=== PATIENT | female | born 1985 | race American Indian/Alaskan Native ===

== ENCOUNTER 2017-01-29 21:53 | Outpatient (CLI) | payer MEDICAID ==
[2017-01-29] MEDS ORDERED: LACTATED RINGERS 1,000 ML IV ONE (22:12)
[2017-01-29 22:16] VITALS: BP 112/76
[2017-01-29 22:53] LABS: Bilirubin,Urine NEG (Negative); Blood,Urine NEG (Negative); Ketones,Urine 20 mg/dL (Negative); Leukocyte Esterase,Urine NEG (Negative); Mucus,Urine 3+ /HPF; Nitrite,Urine NEG (Negative); Urobilinogen,Urine < 2.0 mg/dL (<2.0); WBC,Urine < 1.0 /HPF (0.0-6.0)
== END 2017-01-29 23:30 | disposition home or self-care (01) ==
LOC: TRG 21:53
PROVIDERS: ATTEND Obstetrics & Gynecology
DX: O47.03 False labor before 37 completed weeks of gestation, third trimester (principal); Z3A.31 31 weeks gestation of pregnancy
CPT/HCPCS: 59025; 81001; 96360; J7120

== ENCOUNTER 2017-03-07 19:12 | Outpatient (CLI) | payer MEDICAID ==
[2017-03-07 20:05] VITALS: BP 122/68
[2017-03-07] MEDS ORDERED: TYLENOL ONE (22:03)
[2017-03-07] MEDS ORDERED: TYLENOL PO ONE (22:06)
== END 2017-03-07 22:30 | disposition home or self-care (01) ==
LOC: TRG 19:12 → LD 19:59 → TRG 22:30
PROVIDERS: ATTEND Obstetrics & Gynecology
DX: O47.03 False labor before 37 completed weeks of gestation, third trimester (principal); Z3A.36 36 weeks gestation of pregnancy

== ENCOUNTER 2017-03-10 14:41 | Outpatient (CLI) | payer MEDICAID ==
[2017-03-10 14:57] VITALS: BP 113/58
== END 2017-03-10 16:05 | disposition home or self-care (01) ==
LOC: TRG 14:41
PROVIDERS: ATTEND Obstetrics & Gynecology
DX: O47.1 False labor at or after 37 completed weeks of gestation (principal); Z3A.37 37 weeks gestation of pregnancy
CPT/HCPCS: 59025

== ENCOUNTER 2017-03-20 20:30 | Inpatient (IN) | payer MEDICAID ==
[2017-03-20] MEDS ORDERED: LACTATED RINGERS 1,000 ML ONE (21:48)
[2017-03-20] MEDS ORDERED: STADOL IV PRN (21:57)
[2017-03-20] MEDS ORDERED: BRETHINE SUB-Q PRN (21:57)
[2017-03-20] MEDS ORDERED: XYLOCAINE 2% INFILTRATI ONE (21:57)
[2017-03-20] MEDS ORDERED: MINERAL OIL PO PRN (21:57)
[2017-03-20] MEDS ORDERED: ePHEDrine SULFATE IV PRN (21:57)
[2017-03-20] MEDS ORDERED: SUBLIMAZE IV PRN (21:57)
[2017-03-20] MEDS ORDERED: POLYCILLIN/NS 2 GM/100 ML 2 GM/100 ML BAG IV ONE (21:57)
[2017-03-20] MEDS ORDERED: BRETHINE IVP PRN (21:57)
[2017-03-20] MEDS ORDERED: PITOCin/NS 30 UNIT/500ML 30 UNITS/500 ML BAG IV SCH (22:00)
[2017-03-20] MEDS ORDERED: PITOCin/NS 20 UNIT/1000ML DRIP 20 UNITS/1,000 ML BAG IV SCH (22:00)
[2017-03-20 22:10] LABS: Hemoglobin 10.6 gm/dl (10.1-14.3); Mean Corpuscular HGB Conc 33 % (30-34); Mean Corpuscular Hemoglobin 28 pg (28-32); Mean Corpuscular Volume 86 fl (79-97); Platelet Count 224 K/mm3 (140-440); Red Blood Count 3.72 M/mm3 (3.65-5.03); Red Cell Distribution Width 13.1 % (13.2-15.2); White Blood Count 6.9 K/mm3 (4.5-11.0)
[2017-03-20] MEDS ORDERED: CERVIDIL VG ONE (22:15)
[2017-03-21] MEDS: POLYCILLIN/NS 1 GM/50 ML 1 GM/50 ML BAG IV SCH ×4 (02:57→18:39)
--- NOTE | 2017-03-21 04:38 | History and Physical Report ---
History of Present Illness Date of examination: 03/21/17 Date of admission: 03/20/17 20:30 History of present illness: 31 yo LMP EDC 04/01/17 @ 38.3 weeks gestation, presented to triage for induction of labor secondary to IUGR 1 - 2%. Entry into care at 14 weeks gestation. Abnormal quad, increased risk for T-21. Negative NIPT screen. [facility] referral done for same. Discovered IUGR, continued to follow weekly. Negative TORCh panel. GBS positive Past History Past Surgical History: other (Abdominoplasty 2012) Family/Genetic History: none Social history: no significant social history - Obstetrical History Expected Date of Delivery: 04/01/17 Actual Gestation: 38 Week(s) 3 Day(s) : 4 Para: 2 Hx # Term Pregnancies: 2 Number of Living Children: 2 Medications and Allergies Allergies Allergy/AdvReac Type Severity Reaction Status Date / Time No Known Allergies Allergy Verified 06/26/15 22:47 Home Medications Medication Instructions Recorded Confirmed Last Taken Type ALBUTEROL Inhaler [ProAir HFA 2 puff IH QID PRN #1 inhalation 06/26/15 03/10/17 Unknown Rx Inhaler] Active Meds: Active Medications Butorphanol Tartrate (Stadol) 2 mg IV Q2H PRN PRN Reason: Pain , Severe (7-10) Ephedrine Sulfate (Ephedrine Sulfate) 10 mg IV Q2M PRN PRN Reason: Hypotension Fentanyl (Sublimaze) 100 mcg IV Q2H PRN PRN Reason: Labor Pain Ampicillin Sodium (Polycillin/Ns 1 Gm/50 Ml) 1 gm in 50 mls @ 100 mls/hr IV Q4HR YAW PRN Reason: Protocol Last Admin: 03/21/17 02:57 Dose: 100 mls/hr Lactated Ringer's (Lactated Ringers) 1,000 mls @ 125 mls/hr IV DIRECT YAW Oxytocin/Sodium Chloride (Pitocin/Ns 20 Unit/1000ml Drip) 20 units in 1,000 mls @ 125 mls/hr IV DIRECT YAW Oxytocin/Sodium Chloride (Pitocin/Ns 30 Unit/500ml) 30 units in 500 mls @ 1 mls /hr IV TITR YAW; 1 MILLIUNITS/MIN PRN Reason: Protocol Mineral Oil (Mineral Oil) 30 ml PO QHS PRN PRN Reason: Constipation Ondansetron HCl (Zofran) 8 mg IV Q8H PRN PRN Reason: Nausea And Vomiting Terbutaline Sulfate (Brethine) 0.25 mg SUB-Q ONCE PRN PRN Reason: Hyperstimulation/Hypertonicity Terbutaline Sulfate (Brethine) 0.25 mg IVP ONCE PRN PRN Reason: Hyperstimulation/Hypertonicity Review of Systems All systems: negative - Vital Signs Vital signs: Vital Signs Pulse BP Pulse Ox 97 H 123/70 98 03/20/17 20:57 03/20/17 20:57 03/20/17 20:57 Temp Pulse Resp BP Pulse Ox 98.2 F 89 18 123/81 98 03/21/17 04:22 03/21/17 04:37 03/21/17 04:22 03/21/17 04:22 03/21/17 04:37 - Physical Exam Lungs: Positive: Normal air movement Abdomen: Positive: normal appearance, soft Genitourinary (Female): Positive: normal external genitalia, normal perenium Vagina: Positive: normal moisture Anus/Rectum: Positive: normal perianal skin - Obstetrical FHR: category 1 Uterine Contraction Monitor Mode: External Cervical Dilatation: 1 Cervical Effacement Percentage: 50 station: -3 Uterine Contraction Pattern: Irregular Uterine Tone Measurement Phase: Resting Uterine Contraction Intensity: Mild Results Result Diagrams: 03/20/17 21:30 Abnormal lab results 03/20/17 Range/Units 21:30 RDW 13.1 L (13.2-15.2) % All other labs normal. Assessment and Plan A: IUP at 38.1 weeks gestation IUGR Induction of Labor Unfavorable Cervix GBS Positive P: Cervidil Induction
[2017-03-21] MEDS: LACTATED RINGERS 1,000 ML IV SCH ×2 (06:13→18:13)
[2017-03-21] MEDS: ZOFRAN IV PRN ×2 (08:33→19:52)
[2017-03-21] MEDS ORDERED: CYTOTEC VG PRN (14:00)
[2017-03-21] MEDS: PITOCin/NS 30 UNIT/500ML 30 UNITS/500 ML BAG IV SCH ×5 (15:19→18:03)
[2017-03-21] MEDS ORDERED: TYLENOL PO PRN (16:09)
--- NOTE | 2017-03-21 22:48 | Event Note ---
Date: 03/21/17 Patient advanced to 2cm. Amniotomy performed with clear fluid. IUPC placed. Unable to adequately place FSE. Evidence of hyperstimulation. Pitocin held. Repetitive decels observed during hyperstim. O2 placed. Decels resolved with minimal variability. Will monitor closely and hold pitocin until tracing improves.
[2017-03-21] MEDS ORDERED: NARCAN 2 MG/2 ML IV PRN (23:45)
[2017-03-21] MEDS ORDERED: fentaNYL-BUPIV 2 MCG/ML-0.125% 200 MCG/100 ML BAG EPIDURAL SCH (23:45)
[2017-03-21] MEDS ORDERED: ePHEDrine SULFATE IV PRN (23:45)
--- NOTE | 2017-03-21 23:46 | Anesthesia Consultation ---
Anesthesia Consult and Med Hx Date of service: 03/21/17 - Airway Anesthetic Teeth Evaluation: Good ROM Head & Neck: Adequate Mental/Hyoid Distance: Adequate Mallampati Class: Class II Intubation Access Assessment: Probably Good - Pulmonary Exam CTA: Yes - Cardiac Exam Cardiac Exam: RRR - Pre-Operative Health Status ASA Pre-Surgery Classification: ASA2 Proposed Anesthetic Plan: Epidural - Pulmonary Hx Asthma: No COPD: No Hx Pneumonia: No - Cardiovascular System Hx Hypertension: No - Central Nervous System Hx Seizures: No Hx Psychiatric Problems: No - Endocrine Hx Renal Disease: No Hx End Stage Renal Disease: No Hx Hypothyroidism: No Hx Hyperthyroidism: No - Hematic Hx Anemia: No Hx Sickle Cell Disease: No - Other Systems Hx Alcohol Use: No
[2017-03-22] MEDS: LACTATED RINGERS 1,000 ML IV SCH (00:50)
[2017-03-22] MEDS: POLYCILLIN/NS 1 GM/50 ML 1 GM/50 ML BAG IV SCH (02:45)
--- NOTE | 2017-03-22 03:28 | Procedure Note ---
OB Delivery Note - Delivery Date of Delivery: 03/22/17 Surgeon: JERRY MILAN Estimated blood loss: 100cc - Vaginal Delivery presentation: vertex Delivery position: OA Intrapartum events: other(please specify) (IUGR) Delivery induction: cervidil Delivery augmentation: rupture of membranes, pitocin Delivery monitor: external FHT, internal uterine Route of delivery: Delivery placenta: spontaneous Delivery cord: nuchal cord Episiotomy: none Delivery laceration: none Anesthesia: epidural Delivery comments: Patient progressed to C/C/+2 and pushed to deliver a liveborn female with apgars of 8/9 and weight of 5lbs 14oz. After delivery of the head, a nuchal cord x 1 was manually reduced. The shoulders delivered easily. The infant was bulb suctioned and transferred to the warmer after The cord was clamped and cut. The placenta delivered spontaneously intact with a 3VC. No lacerations. EBL 100ml - A at 1 minute: 8 at 5 minutes: 9 Infant Gender: Female (weight 5lbs 14oz)
[2017-03-22] MEDS ORDERED: TYLENOL PO PRN (03:29)
[2017-03-22] MEDS ORDERED: MILK OF MAGNESIA PO PRN (03:29)
[2017-03-22] MEDS ORDERED: ZOFRAN IV PRN (03:29)
[2017-03-22] MEDS ORDERED: PHENERGAN PO PRN (03:29)
[2017-03-22] MEDS ORDERED: PHENERGAN PR PRN (03:29)
[2017-03-22] MEDS ORDERED: DULCOLAX PR PRN (03:29)
[2017-03-22] MEDS ORDERED: LANSINOH TP PRN (03:29)
[2017-03-22] MEDS ORDERED: BENADRYL PO PRN (03:29)
[2017-03-22] MEDS ORDERED: TUCKS PAD TP PRN (03:29)
[2017-03-22] MEDS ORDERED: SODIUM CHLORIDE FLUSH SYRINGE 10 ML IV NR (04:00)
[2017-03-22] MEDS: NORCO 5/325 PO PRN ×3 (07:28→20:43)
[2017-03-22] MEDS: MOTRIN PO SCH ×3 (07:29→20:43)
[2017-03-22 16:27] LABS: Hematocrit 29.7 % (30.3-42.9); Hemoglobin 9.9 gm/dl (10.1-14.3)
[2017-03-23] MEDS: NORCO 5/325 PO PRN ×2 (04:43→11:40)
[2017-03-23] MEDS: MOTRIN PO SCH ×3 (04:43→11:39)
[2017-03-23] MEDS ORDERED: BOOSTRIX IM ONE (06:05)
--- NOTE | 2017-03-23 09:22 | Progress Note ---
Assessment and Plan O: VSS AF A: Stable PP Day 1 P: discharge home Subjective - Subjective Date of service: 03/23/17 Interval history: 31 yo LMP EDC 04/01/17 @ 38.3 weeks gestation, presented to triage for induction of labor secondary to IUGR 1 - 2%. Entry into care at 14 weeks gestation. Abnormal quad, increased risk for T-21. Negative NIPT screen. [facility] referral done for same. Discovered IUGR, continued to follow weekly. Negative TORCh panel. GBS positive Patient reports: appetite normal, voiding normally, pain well controlled, flatus , ambulating normally [place]: doing well Objective - Vital Signs Latest vital signs: Vital Signs Temp Pulse Resp BP BP Pulse Ox 03/23/17 00:30 98.6 F 66 16 120/71 03/22/17 16:26 98.1 F 74 22 109/57 95 03/22/17 12:14 97.7 F 76 20 124/80 98 Intake and Output 03/22/17 03/23/17 03/23/17 22:59 06:59 14:59 Intake Total 360 600 Balance 360 600 Intake: Oral 360 Intake, Free Water 600 Other: Total, Intake Amount 360 # Voids Void 1 - Exam Breasts: Present: deferred Lungs: Present: Normal air movement Abdomen: Present: normal appearance, soft. Absent: distention, tenderness Vulva: both: normal Uterus: Present: normal, firm, fundal height below umbilicus. Absent: bogginess , tenderness Extremities: Present: normal - Labs Labs: Abnormal lab results 03/22/17 Range/Units 16:10 Hgb 9.9 L (10.1-14.3) gm/dl Hct 29.7 L (30.3-42.9) %
--- NOTE | 2017-03-23 09:24 | Discharge Summary ---
Providers - Providers Date of Admission: 03/20/17 20:30 Date of discharge: 03/23/17 Attending physician: CHERRY MARTIN Primary care physician: CHERRY MARTIN Hospitalization Reason for admission: active labor, IUP at term Delivery: Episiotomy: none Laceration: none Other procedures: none complications: none Discharge diagnosis: IUP at term delivered baby: female Condition at discharge: Good Disposition: DC-01 TO HOME OR SELFCARE Plan - Discharge Medications Prescriptions: Ibuprofen [Motrin 600 MG tab] 600 mg PO Q6H PRN #30 tablet PRN Reason: Pain - Provider Discharge Summary Activity: routine, no sex for 6 weeks, no heavy lifting 4 weeks, no strenuous exercise Diet: routine Instructions: routine Additional instructions: [] Smoking cessation referral if applicable(refer to patient education folder for contact #) [] Refer to [facility]'s [facility] Booklet Call your doctor immediately for: * Fever > 100.5 * Heavy vaginal bleeding ( >1 pad per hour) * Severe persistent headache * Shortness of breath * Reddened, hot, painful area to leg or breast * Drainage or odor from incision. * Keep incision clean and dry at all times and follow doctor's instructions regarding bathing/showering - Follow up plan Follow up: CHERRY MARTIN MD [Primary Care Provider] - ZACARIAS GALICIA CNM [Advanced Practice Nurse] - (RTO 4 weeks ) Forms: [facility] Discharge Summary
[2017-03-23 17:17] VITALS: BP 112/70
== END 2017-03-23 16:50 | disposition home or self-care (01) | DRG 775 ==
LOC: LD 20:30 → OB 03-22 07:59
PROVIDERS: ADMIT Obstetrics & Gynecology; ATTEND Obstetrics & Gynecology
PROC: 10H07YZ Insertion of Other Device into Products of Conception, Via Natural or Artificial Opening (ICD-10-PCS; 2017-03-21)
PROC: 10E0XZZ Delivery of Products of Conception, External Approach (ICD-10-PCS; principal; 2017-03-22)
PROC: 3E0P7VZ Introduction of Hormone into Female Reproductive, Via Natural or Artificial Opening (ICD-10-PCS; 2017-03-22)
PROC: 3E0R3BZ Introduction of Anesthetic Agent into Spinal Canal, Percutaneous Approach (ICD-10-PCS; 2017-03-22)
PROC: 00HU33Z Insertion of Infusion Device into Spinal Canal, Percutaneous Approach (ICD-10-PCS; 2017-03-22)
DX: O36.5930 Maternal care for other known or suspected poor fetal growth, third trimester, not applicable or unspecified (principal); O99.824 Streptococcus B carrier state complicating childbirth; O69.81X0 Labor and delivery complicated by cord around neck, without compression, not applicable or unspecified; Z3A.38 38 weeks gestation of pregnancy; Z37.0 Single live birth; Z79.899 Other long term (current) drug therapy
CPT/HCPCS: 36415; 85014; 85018; 85027; 86592; 86850; 86900; 86901; 90471; 90715; A6250; J0290; J2405; J2590; J3010; J7120

== ENCOUNTER 2020-07-27 13:15 | Emergency (ER) | payer MEDICAID ==
[2020-07-27 13:23] VITALS: BP 137/98
[2020-07-27] MEDS ORDERED: dexAMETHasone 20 MG/5 ML VIAL IV ONE (16:57)
[2020-07-27] MEDS ORDERED: diphenhydrAMINE 50 MG/ML VIAL IV ONE ×2 (16:57→18:18)
[2020-07-27] MEDS ORDERED: FAMOTIDINE 20 MG/2 ML INJ IV ONE (16:57)
--- NOTE | 2020-07-27 17:01 | Emergency Department Report ---
ED General Adult HPI - General Chief complaint: Allergic Reaction Stated complaint: ALLERGIC REACTION Time Seen by Provider: 07/27/20 16:52 Source: patient Mode of arrival: Ambulatory Limitations: No Limitations - History of Present Illness Initial comments: 35-year-old female patient presents to emergency department with complaints of an allergic reaction starting yesterday. Patient states that she underwent tinting of her eyebrows and used a new hair dye, after which she began experiencing itching and swelling of the forehead and eyes. Patient removed as much of the tint from her eyebrows as possible. Patient took 1 dose of Benadryl earlier today. No history of anaphylaxis. Symptoms are localized to the forehead and eyes. Patient does not wear contact lenses. Denies fever, chills, wheezing, shortness of breath, syncope, hoarseness, dysphagia. Denies all other complaints at this time. - Related Data Previous Rx's Medication Instructions Recorded Last Taken Type Albuterol Mdi (or & Nicu Only) 2 puff IH QID PRN #1 inhalation 06/26/15 Unknown Rx [ProAir HFA Inhaler] Famotidine [Pepcid] 20 mg PO BID 7 Days tablet 07/27/20 Unknown Rx hydrOXYzine HCL [Atarax] 25 mg PO Q6HR #30 tablet 07/27/20 Unknown Rx predniSONE [Deltasone] 40 mg PO QDAY 7 Days tab 07/27/20 Unknown Rx Allergies Allergy/AdvReac Type Severity Reaction Status Date / Time No Known Allergies Allergy Verified 07/27/20 13:20 ED Review of Systems ROS: Stated complaint: ALLERGIC REACTION Other details as noted in HPI Other: GENERAL: Negative for fever, chills, weight change, anorexia, fatigue. ENT: Negative for ear pain, difficulty hearing, sore throat, nasal congestion, epistaxis. CARDIOVASCULAR: Negative for chest pain, palpitations, lower extremity swelling. PULMONARY: Negative for cough, dyspnea, wheezing, orthopnea, cyanosis. GASTROINTESTINAL: Negative for abdominal pain, nausea, vomiting, diarrhea, constipation. MUSCULOSKELETAL: Negative for joint pain, joint swelling, myalgias, back pain, neck pain. NEUROLOGICAL: Negative for headache, seizure, syncope, paresthesias, weakness. INTEGUMENTARY: Positive for swelling and itching HEMATOLOGICAL: Negative for hemoptysis, hematemesis, hematochezia, hematuria. PSYCHIATRIC: Negative for hallucinations, suicidal ideation, homicidal ideation, anxiety, depression. ED Past Medical Hx - Past Medical History Hx Hypertension: No Hx Congestive Heart Failure: No Hx Diabetes: No Hx Deep Vein Thrombosis: No Hx GERD: Yes Hx Renal Disease: No Hx Sickle Cell Disease: No Hx Seizures: No Hx Asthma: Yes (Last used) Hx COPD: No Hx HIV: No - Social History Smoking Status: Never Smoker Substance Use Type: None - Medications Home Medications: Home Medications Medication Instructions Recorded Confirmed Last Taken Type Albuterol Mdi (or & Nicu Only) 2 puff IH QID PRN #1 inhalation 06/26/15 01/24/20 Unknown Rx [ProAir HFA Inhaler] Famotidine [Pepcid] 20 mg PO BID 7 Days tablet 07/27/20 Unknown Rx hydrOXYzine HCL [Atarax] 25 mg PO Q6HR #30 tablet 07/27/20 Unknown Rx predniSONE [Deltasone] 40 mg PO QDAY 7 Days tab 07/27/20 Unknown Rx ED Physical Exam - General Limitations: No Limitations - Other Other exam information: General: Awake and alert. No acute distress. Head: Atraumatic, normocephalic. Eyes: Significant bilateral pruritic periorbital swelling. Patient is barely able to open her eyes. There is no purulent drainage. ENT: Oral mucosa is moist. Normal pharyngeal exam. Airway is patent. Neck: Supple. No lymphadenopathy. Pulmonary: No respiratory distress. Clear to auscultation bilaterally. No stridor. Cardiac: Regular rate and rhythm. Pulses are palpable and equal bilaterally. No lower extremity cyanosis or edema. Skin: Warm and dry. No rashes. Abdomen: Soft, non-tender, non-protuberant. No guarding, rigidity, or rebound. Bowel sounds are normal. No organomegaly or masses noted. Back: Normal alignment. No CVA tenderness. Extremities: Symmetrical. Full range of motion intact. Neurological: Alert and oriented, appropriately interactive, no focal deficits. Psych: Cooperative. Appropriate mood and affect. Speech is evenly metered. Thoughts are logically construed. ED Course Vital Signs 07/27/20 07/27/20 07/27/20 13:22 18:29 20:00 Temperature 98.4 F Pulse Rate 81 74 Respiratory 20 20 16 Rate Blood Pressure 137/98 O2 Sat by Pulse 100 100 Oximetry ED Medical Decision Making - Medical Decision Making Differential diagnosis including but not limited to: anaphylaxis, contact dermatitis, UV keratitis, periorbital/orbital cellulitis 18:17: On re-evaluation, patient states her symptoms have not improved following steroids and antihistamines. Periorbital swelling appears unchanged. Will order additional medications, apply ice packs to affected areas, and re-evaluate. 19:56: On reevaluation, patient is stable and symptoms have started to improve. No hypoxia, no respiratory distress. Periorbital swelling appears to be improving. No clinical indication for further diagnostic work-up on an emergent basis at this time. Patient will be discharged home with steroids and antihistamines for further symptomatic relief. Emphasized the importance of removing as much of the offending agent from her scalp/eyebrows as possible to facilitate symptom resolution. Patient expressed understanding and is agreeable to plan of care. Strict return precautions provided. Repeat exam is unremarkable and benign. History, exam, diagnostic testing, and current condition do not suggest worrisome pathology to warrant further testing, continued ED treatment, admission, or surgical evaluation at this point. Given the low probability of a significant medical illness, it would be more likely to result in harm than benefit to perform further testing at this stage. Discussed findings, presumptive diagnosis, need for follow-up and specific signs/symptoms that should prompt immediate return to the emergency department. Instructions were explained in detail to the patient in addition to giving written discharge information. Patient expressed understanding and was given the opportunity to ask questions, all of which were satisfactorily answered prior to discharge home. Critical care attestation.: If time is entered above; I have spent that time in minutes in the direct care of this critically ill patient, excluding procedure time. ED Disposition Clinical Impression: Contact dermatitis due to chemicals Disposition: DC-01 TO HOME OR SELFCARE Is pt being admited?: No Does the pt Need Aspirin: No Condition: Stable Instructions: Contact Dermatitis Additional Instructions: Take Prednisone with food as directed. Take Hydroxyzine and Pepcid as directed. Apply ice to affected areas as often as possible to reduce swelling. Remove as much of the chemical from your eyebrows as possible. Follow-up with your primary care provider this week. Call tomorrow to schedule an appointment. Return to the emergency department immediately for new or worsening symptoms. Prescriptions: hydrOXYzine HCL [Atarax] 25 mg PO Q6HR #30 tablet predniSONE [Deltasone] 40 mg PO QDAY 7 Days tab Famotidine [Pepcid] 20 mg PO BID 7 Days tablet Referrals: CHANELLE RANDALL [employer] DIRECTOR-C [Primary Care Provider] - 3-5 Days Time of Disposition: 19:56
[2020-07-27] MEDS ORDERED: KETOROLAC 30 MG/1 ML INJ IV ONE (18:18)
== END 2020-07-27 20:00 | disposition home or self-care (01) ==
LOC: ED 13:15
DX: L25.3 Unspecified contact dermatitis due to other chemical products (principal); K21.9 Gastro-esophageal reflux disease without esophagitis; J45.909 Unspecified asthma, uncomplicated; Z79.899 Other long term (current) drug therapy
CPT/HCPCS: 96374; 96375; 96376; 99282; J1100; J1200; J1885